=== PATIENT | female | born 1985 | race Caucasian/White ===

== ENCOUNTER 2017-12-04 11:49 | Inpatient (IN) | payer OTHER ==
[~2017-12-04] VITALS: Ht 195.6 cm; Wt 67.6 kg
[2017-12-04] MEDS ORDERED: SODIUM CHLORIDE 0.9% 1,000 ML IV ONE ×2 (12:04→13:57)
[2017-12-04 12:26] LABS: BASOPHILS % 0.5 % (0.0-2.0); EOSINOPHILS % 1.2 % (0.0-5.0); HEMATOCRIT. 36.4 % (36.0-48.0); HEMOGLOBIN. 12.5 g/dL (12.0-16.0); LYMPHOCYTES % 25.6 % (20.0-50.0); MEAN CORPUSCULAR HEMOGLOBIN 27.5 pg (28.0-32.0); MEAN CORPUSCULAR VOLUME 79.9 fL (81.0-99.0); MEAN PLATELET VOLUME 7.8 fl (7.4-10.4); NEUTROPHILS % 70.7 % (40.0-76.0); PLATELET 378 x1000/uL (130-400); RED BLOOD CELL COUNT 4.55 mill/uL (4.2-5.4); RED CELL DISTRIBUTION WIDTH 13.7 % (11.6-14.6)
[2017-12-04 12:31] LABS: CHLORIDE 106 mEq/L (98-107)
[2017-12-04 12:35] LABS: PARTIAL THROMBOPLASTIN TIME 26.1 sec (23.4-31.0); PROTHROMBIN TIME 10.4 sec (9.4-11.6)
[2017-12-04 12:55] LABS: B-HCG QUANTITATIVE 26669 mIU/mL (<3)
[2017-12-04] MEDS ORDERED: SODIUM CHL 0.45% + KCL 20MEQ/L 1,000 ML IV SCH (14:00)
[2017-12-04] MEDS ORDERED: OXYTOCIN 30 UNITS in DEXT 5%/LACTATED RINGERS 1,000 ML IV ONE (14:15)
[2017-12-04] MEDS ORDERED: DOXYCYCLINE 100 MG in DEXT 5% WATER 100 ML IV SCH (14:30)
[2017-12-04 15:06] LABS: HEMATOCRIT 28.5 % (36.0-48.0); HEMOGLOBIN 9.6 g/dL (12.0-16.0); MEAN CORPUSCULAR HEMOGLOBIN 27.3 pg (28.0-32.0); MEAN CORPUSCULAR VOLUME 80.7 fL (81.0-99.0); PLATELET 275 x1000/uL (130-400); RED BLOOD CELL COUNT 3.53 mill/uL (4.2-5.4); RED CELL DISTRIBUTION WIDTH 13.9 % (11.6-14.6)
[2017-12-04] MEDS ORDERED: MISOPROSTOL 200MCG TABLET PO ONE (15:30)
[2017-12-04] MEDS ORDERED: METHYLERGONOVINE MALEATE 0.2 MG/ML IM ONE (15:30)
[2017-12-04] MEDS ORDERED: FENTANYL CITRATE/PF 50MCG/ML 2ML VIAL IV ONE (16:45)
[2017-12-04] MEDS ORDERED: ONDANSETRON HCL 4MG/2ML VIAL IV ONE (16:45)
[2017-12-04 17:10] LABS: HEMATOCRIT 27.6 % (36.0-48.0); HEMOGLOBIN 9.4 g/dL (12.0-16.0); MEAN CORPUSCULAR VOLUME 79.6 fL (81.0-99.0); PLATELET 276 x1000/uL (130-400); RED BLOOD CELL COUNT 3.46 mill/uL (4.2-5.4); RED CELL DISTRIBUTION WIDTH 13.5 % (11.6-14.6)
[2017-12-04] MEDS ORDERED: ACETAMINOPHEN 650MG SUPP PR PRN (21:00)
[2017-12-04] MEDS ORDERED: ONDANSETRON HCL 4MG/2ML VIAL IV PRN (21:00)
[2017-12-04 21:32] VITALS: BP 102/52
[2017-12-04 21:40] VITALS: BP 102/52
[2017-12-04] MEDS: CEFAZOLIN 1000MG PREMIX 50 ML IV SCH (22:43)
[2017-12-04] MEDS: FAMOTIDINE 20MG/2ML VIAL IV SCH (22:43)
[2017-12-04] MEDS: METRONIDAZOLE 500 MG PREMIX 100 ML IV SCH (22:44)
[2017-12-04] MEDS: MORPHINE SULFATE 4 MG/ML CPJ (NOT FOR IM USE) IV PRN (23:44)
[2017-12-05] VITALS: BP 97/58
[2017-12-05 04:00] VITALS: BP 99/60
[2017-12-05] MEDS: MORPHINE SULFATE 4 MG/ML CPJ (NOT FOR IM USE) IV PRN ×2 (04:26→08:16)
[2017-12-05] MEDS: METRONIDAZOLE 500 MG PREMIX 100 ML IV SCH ×2 (06:02→15:59)
[2017-12-05] MEDS: CEFAZOLIN 1000MG PREMIX 50 ML IV SCH ×2 (06:02→14:07)
[2017-12-05 07:58] LABS: BASOPHILS % 0.4 % (0.0-2.0); EOSINOPHILS % 1.6 % (0.0-5.0); HEMATOCRIT. 24.9 % (36.0-48.0); HEMOGLOBIN. 8.8 g/dL (12.0-16.0); LYMPHOCYTES % 24.7 % (20.0-50.0); MEAN CORPUSCULAR HEMOGLOBIN 27.8 pg (28.0-32.0); MEAN PLATELET VOLUME 8.1 fl (7.4-10.4); MONOCYTES % 5.9 % (2.0-8.0); NEUTROPHILS % 67.4 % (40.0-76.0); PLATELET 243 x1000/uL (130-400); RED BLOOD CELL COUNT 3.15 mill/uL (4.2-5.4); RED CELL DISTRIBUTION WIDTH 13.7 % (11.6-14.6)
[2017-12-05 08:00] VITALS: BP 104/61
[2017-12-05] MEDS: FAMOTIDINE 20MG/2ML VIAL IV SCH (08:13)
[2017-12-05 08:38] LABS: CHLORIDE 109 mEq/L (98-107)
[2017-12-05 12:00] VITALS: BP 114/79
[2017-12-05 15:39] VITALS: BP 104/53
[2017-12-05 16:58] VITALS: BP 104/53
== END 2017-12-05 17:29 | disposition home or self-care (01) | DRG 921 ==
LOC: ER 12:18 → 6EST 14:08 → ENRESERV 19:08
PROVIDERS: ADMIT Obstetrics & Gynecology; ATTEND Obstetrics & Gynecology
PROC: 30233N1 Transfusion of Nonautologous Red Blood Cells into Peripheral Vein, Percutaneous Approach (ICD-10-PCS; principal; 2017-12-04)
PROC: 3E0234Z Introduction of Serum, Toxoid and Vaccine into Muscle, Percutaneous Approach (ICD-10-PCS; 2017-12-04)
PROC: 2Y54X5Z Removal of Female Genital Tract Packing Material (ICD-10-PCS; 2017-12-04)
DX: N99.820 Postprocedural hemorrhage of a genitourinary system organ or structure following a genitourinary system procedure (principal); D64.9 Anemia, unspecified; I95.1 Orthostatic hypotension
CPT/HCPCS: 36415; 76830; 76856; 80048; 80053; 82962; 84702; 85025; 85027; 85610; 85730; 86850; 86870; 86886; 86900; 86920; 90384; 93005; J0690; J2210; J2270; J3010; J3480; J3490; J7030; J7050; J7060; J7121; P9016